=== PATIENT | female | born 1950 | race Two or more races ===

== ENCOUNTER 2019-05-07 08:13 | Outpatient (CLI) | payer OTHER | END 2019-05-07 08:33 | disposition home or self-care (01) | LOC: TOM 08:13 | DX: K57.32 Diverticulitis of large intestine without perforation or abscess without bleeding (principal); Z86.010 Personal history of colon polyps; K56.50 Intestinal adhesions [bands], unspecified as to partial versus complete obstruction ==

== ENCOUNTER 2022-08-01 10:23 | Emergency (ER) | payer OTHER ==
[~2022-08-01] VITALS: Ht 162.6 cm; Wt 90.7 kg
[2022-08-01] MEDS ORDERED: HYDROCORTISONE20 MG PO (10:32)
== END 2022-08-01 14:42 | disposition home or self-care (01) ==
LOC: ER 10:23
DX: R31.9 Hematuria, unspecified (principal); E87.6 Hypokalemia; Z88.0 Allergy status to penicillin; Z88.2 Allergy status to sulfonamides